=== PATIENT | male | born 1950 | race Caucasian/White ===

== ENCOUNTER 2020-08-08 18:44 | Emergency (ER) | payer BC ==
[~2020-08-08] VITALS: Ht 175.3 cm; Wt 65.8 kg
[2020-08-08 18:46] VITALS: BP 110/58
[2020-08-08 19:58] LABS: Basophils # (auto) 0 10 ^3/uL (0-0.2); Basophils % (auto) 0.6 % (0.0-2.0); Eosinophils # (auto) 0 10 ^3/uL (0-0.8); Eosinophils % (auto) 0.3 % (0.0-7.0); Hematocrit 45.7 % (41.0-53.0); Hemoglobin 15.4 g/dL (13.5-17.5); Lymphocytes # (auto) 1.1 10 ^3/uL (0.4-5.4); Lymphocytes % (auto) 31.1 % (10.0-50.0); Mean Corpuscular Hemoglobin 30.2 pg (28.0-32.0); Mean Corpuscular Hgb Conc. 33.6 g/dL (32.0-36.0); Mean Corpuscular Volume 89.7 fL (80.0-100.0); Monocytes # (auto) 0.5 10 ^3/uL (0-1.3); Monocytes % (auto) 13.7 % (0.0-12.0); Neutrophils # (auto) 1.9 10 ^3/uL (1.6-8.6); Neutrophils % (auto) 54.3 % (37.0-80.0); Nucleated Red Blood Cells % 0.1 %; Platelet Count (auto) 115 10^3/uL (140-450); Red Blood Cells 5.09 10^6/uL (4.5-5.90); Red Cell Distribution Width 16.5 % (11.8-14.3); White Blood Cell 3.4 10^3/uL (4.4-10.8)
[2020-08-08 20:14] LABS: Albumin 3.6 g/dL (3.4-5.0); Anion Gap 5 (5-15); Blood Urea Nitrogen 17 mg/dL (7-18); Calcium 8.3 mg/dL (8.5-10.1); Carbon Dioxide 30 mmol/L (21-32); Chloride 99 mmol/L (98-107); Glucose 99 mg/dL (74-106); Potassium 3.7 mmol/L (3.5-5.1); Sodium 134 mmol/L (136-145)
[2020-08-08 20:20] LABS: Alanine Aminotransferase 28 U/L (16-61); Alkaline Phosphatase 97 U/L (45-117); Aspartate Aminotransferase 35 U/L (15-37); Bilirubin, Total 0.7 mg/dL (0.2-1.0); GFR African American 89 mL/min; GFR Non-African American 73 mL/min; Total Protein 7.7 g/dL (6.4-8.2)
== END 2020-08-08 21:52 | disposition home or self-care (01) ==
LOC: ER 18:44
DX: J06.9 Acute upper respiratory infection, unspecified (principal); E86.0 Dehydration; D69.6 Thrombocytopenia, unspecified; I25.10 Atherosclerotic heart disease of native coronary artery without angina pectoris; Z87.442 Personal history of urinary calculi; Z95.1 Presence of aortocoronary bypass graft; Z90.49 Acquired absence of other specified parts of digestive tract; Z98.890 Other specified postprocedural states; Z20.822 Contact with and (suspected) exposure to COVID-19
CPT/HCPCS: 36415; 71045; 80053; 81002; 83880; 84484; 85025; 87426; 93005